=== PATIENT | female | born 1975 | race Two or more races ===

== ENCOUNTER 2024-09-07 17:01 | Inpatient (IN) | payer BC, MEDICAID ==
[~2024-09-07] VITALS: Ht 165.1 cm; Wt 105.0 kg
--- NOTE | 2024-09-07 17:31 | ED.PDOC ---
History of Present Illness HPI Comments 49F presents to the ER w/ prior MHx of HTN, High Lipids, Liver [place], Diverticulosis and the c/c of ABD pain. Pt reports on having a"I think my appendix bursted" x2hrs ago. Pt states on having RLQ pain since last Tuesday of 08/2324 w/ N/ and sweating. Pt reports a current pain type of a 01/18. Denies chills, fever, /V/D, SOB, CP. Denies any other associated symptom's, modifiers, or recent injuries or sick contact at this time. 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 Family History Family History: Reviewed,noncontributory to illness, Unknown Social History Smoker: Non-Smoker Alcohol: Denies ETOH Use Drugs: Denies Drug Use Lives In: Home Constitutional: denies: chills, diaphoresis, fatigue, fever, malaise, sweats, weakness, others EENTM: denies: blurred vision, double vision, ear bleeding, ear discharge, ear drainage, ear pain, ear ringing, eye pain, eye redness, hearing loss, mouth pain, mouth swelling, nasal discharge, nose bleeding, nose congestion, nose pain, photophobia, tearing, throat pain, throat swelling, voice changes, others Respiratory: denies: cough, hemoptysis, orthopnea, SOB at rest, shortness of breath, SOB with excertion, stridor, wheezing, others Cardiovascular: denies: chest pain, dizzy spells, diaphoresis, Dyspnea on exertion, edema, irregular heart beat, left arm pain, lightheadedness, palpita tions, PND, syncope, others Gastrointestinal: reports: abdominal pain, nausea; denies: abdomen distended, blood streaked bowels, constipated, diarrhea, dysphagia, difficulty swallowing, hematemesis, melena, poor appetite, poor fluid intake, rectal bleeding, rectal pain, vomiting, others Genitourinary: denies: abnormal vagina bleeding, burning, dyspareunia, dysuria, flank pain, frequency, hematuria, incontinence, pain, , vagina discharge, urgency, others Neurological: denies: dizziness, fainting, headache, left sided numbness, left sided weakness, numbness, paresthesia, pre-existing deficit, right sided numbness, right sided weakness, seizure, speech problems, tingling, tremors, weakness, others Musculoskeletal: denies: back pain, gout, joint pain, joint swelling, muscle pain, muscle stiffness, neck pain, others Integumetry: denies: bruises, change in color, change in hair/nails, dryness, laceration, lesions, lumps, rash, wounds, others Allergic/Immunocompromised: denies: Difficulty Healing, Frequent Infections, Hives, Itching, others Hematologic/Lymphatic: denies: anemia, blood clots, easy bleeding, easy bruising, swollen glands, others Endocrine: denies: excessive hunger, excessive sweating, excessive thirst, excessive urination, flushing, intolerance to cold, intolerance to heat, unexpla ined weight gain, unexplained weight loss, others Psychiatric: denies: anxiety, bipolar disorder, depression, hopeless, panic disorder, schizophrenia, sleepless, suicidal, others All Other Systems: Reviewed and Negative Physical Exam General Appearance: Moderate Distress HEENT: Normal ENT Inspection, Pharynx Normal, TMs Normal Neck: Full Range of Motion, Non-Tender, Normal, Normal Inspection Respiratory: Chest Non-Tender, Lungs Clear, No Accessory Muscle Use, No Respiratory Distress, Normal Breath Sounds Cardiovascular: No Edema, No JVD, No Murmur, No Gallop, Normal Peripheral Pulses, Regular Rate/Rhythm Breast Exam: Deferred Gastrointestinal: No Organomegaly, No Pulsatile Mass, Normal Bowel Sounds, RLQ, Soft, Tenderness Genitalia: Deferred Pelvic: Deferred Rectal: Deferred Extremities: No calf tenderness, Normal capillary refill, Normal inspection, Normal range of motion, Non-tender, No pedal edema Musculoskeletal : Apperance: Normal Neurologic: Alert, emergency dept tech II-XII nml as Tested, No Motor Deficits, Normal Affect, Normal Mood, No Sensory Deficits Cerebellar Function: Normal Reflexes: Normal Skin: Dry, Normal Color, Warm Lymphatic: No Adenopathy Was a procedure done? Was a procedure done?: No Differential Dx Considerations may include: Appendicitis, ruptured ovarian cyst, UTI, generalized weakness X-Ray, Labs, Meds, VS Vital Signs Date Time Temp Pulse Resp B/P (MAP) Pulse Ox O2 Delivery O2 Flow Rate FiO2 09/07/24 17:15 97.1 120 28 146/81 (102) 97 97.1 Lab Test 09/07/24 17:41 Range/Units White Blood Count 11.5 H 4.4-10.8 10^3/uL Red Blood Count 5.20 4.0-5.20 10^6/uL Hemoglobin 14.5 12.2-16.2 g/dL Hematocrit 43.1 36.0-46.0 % Mean Corpuscular Volume 83.0 80.0-100.0 fL Mean Corpuscular Hemoglobin 28.0 28.0-32.0 pg Mean Corpuscular Hemoglobin Concent 33.7 32.0-36.0 g/dL Red Cell Distribution Width 12.9 11.8-14.3 % Platelet Count 329 140-450 10^3/uL Mean Platelet Volume 8.4 6.9-10.8 fL Neutrophils (%) (Auto) 64.6 37.0-80.0 % Lymphocytes (%) (Auto) 26.4 10.0-50.0 % Monocytes (%) (Auto) 6.9 0.0-12.0 % Eosinophils (%) (Auto) 1.3 0.0-7.0 % Basophils (%) (Auto) 0.8 0.0-2.0 % Neutrophils # (Auto) 7.4 1.6-8.6 10 ^3/uL Lymphocytes # (Auto) 3.0 0.4-5.4 10 ^3/uL Monocytes # (Auto) 0.8 0-1.3 10 ^3/uL Eosinophils # (Auto) 0.1 0-0.8 10 ^3/uL Basophils # (Auto) 0.1 0-0.2 10 ^3/uL Nucleated Red Blood Cells 0.1 % Sodium Level 140 136-145 mmol/L Potassium Level 3.6 3.5-5.1 mmol/L Chloride Level 108 H 98-107 mmol/L Carbon Dioxide Level 19 L 20-31 mmol/L Anion Gap 13 5-15 Blood Urea Nitrogen 12 9-23 mg/dL Creatinine 1.05 H 0.550-1.02 mg/dL Glomerular Filtration Rate Calc 66 >90 mL/min BUN/Creatinine Ratio 11.4 10.0-20.0 Serum Glucose 108 H 74-106 mg/dL Calcium Level 10.7 H 8.7-10.4 mg/dL Total Bilirubin 0.6 0.2-1.0 mg/dL Aspartate Amino Transferase (AST) 21 13-40 U/L Alanine Aminotransferase (ALT) 24 7-40 U/L Alkaline Phosphatase 96 46-116 U/L Total Protein 7.7 5.7-8.2 g/dL Albumin 5.1 H 3.2-4.8 g/dL IMPRESSION: 1. No CT evidence for acute intra-abdominal or intrapelvic process. 2. Mild diffuse gaseous distention of the large bowel without bowel wall thickening. 3. Slightly irregular liver contour concerning for developing cirrhosis. In addition, small hypodense lesion seen in segment IV which is typically related to underlying focal fatty change. These findings should be further evaluated by liver function test and multiphasic abdominal CT scan or MRI without and with IV contrast utilizing a dedicated hepatic protocol on a nonemergent basis. IV Hep-Lock is being established The patient was given normal saline as a bolus The patient was given morphine 4 mg IV push for the pain The patient was given Zofran 4 mg IV push for the nausea Images Reviewed?: Images reviewed and evaluated by me Time of 1ST Reevaluation: 18:00 Reevaluation 1ST: Unchanged Patient Education/Counseling: Diagnosis, Treatment, Prognosis Family Education/Counseling: No Family Present Departure 1 Departure Time of Disposition: 18:44 Impression: Primary Impression: Intractable abdominal pain Additional Impression: Cirrhosis of liver Qualified Codes: K74.60 - Unspecified cirrhosis of liver Disposition: ADMITTED INPATIENT Admit to: Med Surg Condition: Fair Critical Care Note Critical Care Time?: No Stability Stability form required: Yes Unstable for transfer: ED Physician Assesment (Clinical assesment) Heart Score Heart Score: Heart Score Response (Comments) Value History N/A 0 EKG N/A 0 Age N/A 0 Risk Factors N/A 0 Troponin N/A 0 Total 0 I personally scribed for IMAN ORTEGA MD ([email or web address]) on 09/07/24 at 17:31. Electronically submitted by Jason White ([email or web address]). I personally scribed for IMAN ORTEGA MD ([email or web address]) on 09/07/24 at 18:29. Electronically submitted by Michel Castellanos ([facility]). I personally scribed for IMAN ORTEGA MD ([email or web address]) on 09/07/24 at 18:35. Electronically submitted by Jason White ([email or web address]). IMAN ORTEGA MD September 07, 2024 17:31
[2024-09-07 18:15] LABS: Basophils # (auto) 0.1 10 ^3/uL (0-0.2); Basophils % (auto) 0.8 % (0.0-2.0); Eosinophils # (auto) 0.1 10 ^3/uL (0-0.8); Eosinophils % (auto) 1.3 % (0.0-7.0); Hematocrit 43.1 % (36.0-46.0); Hemoglobin 14.5 g/dL (12.2-16.2); Lymphocytes % (auto) 26.4 % (10.0-50.0); Mean Corpuscular Hgb Conc. 33.7 g/dL (32.0-36.0); Monocytes # (auto) 0.8 10 ^3/uL (0-1.3); Monocytes % (auto) 6.9 % (0.0-12.0); Neutrophils # (auto) 7.4 10 ^3/uL (1.6-8.6); Neutrophils % (auto) 64.6 % (37.0-80.0); Nucleated Red Blood Cells % 0.1 %; Platelet Count (auto) 329 10^3/uL (140-450); Red Cell Distribution Width 12.9 % (11.8-14.3); White Blood Cell 11.5 10^3/uL (4.4-10.8)
--- NOTE | 2024-09-07 18:25 | DVH ---
Procedure: CT CT AB PEL WO CON-NO ORAL OR IV 09/07/2024 05:26 PM Indication: Right lower quadrant pain Comparison Study: None Technique: Axial images were obtained and reformatted in coronal and sagittal planes. All CT scans at this medical facility are performed using dose modulation techniques as appropriate to a performed e xam including the following: Automated exposure control was utilized; adjustment of the MA and/or KV according to patient size; and use of iterative reconstruction technique. CT Dose: CTDI volume is 26. 05 mGy. Dose-length product is 1367.6 mGy*cm FINDINGS: Lower Chest: Unremarkable. Hepatobiliary: Slightly irregular liver contour. No intrahepatic or extrahepatic ductal dilatation. S mall focal hypoattenuation in the left lobe, segment IV adjacent to the falciform ligament typically reflect focal fatty change. No calcified gallstone noted. Spleen: Unremarkable. Pancreas: Unremarkable. Adrenal Glands: Unremarkable. tract: The kidneys are normal in size bilaterally without hydronephrosis or nephrolithiasis. The u rinary bladder is unremarkable. GI tract: The stomach is grossly normal in appearance. No evidence of small bowel obstruction. There is mild diffuse gaseous distention of the large bowel without mural thickening. Mild fecal retention in the ascending colon. The appendix is normal. Lymphatics: No mesenteric, retroperitoneal or periportal lymphadenopathy. Vasculature: The abdominal aorta is normal in caliber. Pelvic Organs: Unremarkable Bones/soft tissues: No acute abnormality. Degenerative changes of the lumbar spine noted. Small fat-c ontaining umbilical hernia. Other: None. IMPRESSION: 1. No CT evidence for acute intra-abdominal or intrapelvic process. 2. Mild diffuse gaseous distention of the large bowel without bowel wall thickening. 3. Slightly irregular liver contour concerning for developing cirrhosis. In addition, small hypodens e lesion seen in segment IV which is typically related to underlying focal fatty change. These findi ngs should be further evaluated by liver function test and multiphasic abdominal CT scan or MRI witho ut and with IV contrast utilizing a dedicated hepatic protocol on a nonemergent basis.
[2024-09-07 18:27] LABS: Alanine Aminotransferase 24 U/L (7-40); Alkaline Phosphatase 96 U/L (46-116); Anion Gap 13 (5-15); Aspartate Aminotransferase 21 U/L (13-40); BUN/Creatinine Ratio 11.4 (10.0-20.0); Bilirubin, Total 0.6 mg/dL (0.2-1.0); Blood Urea Nitrogen 12 mg/dL (9-23); Potassium 3.6 mmol/L (3.5-5.1); Sodium 140 mmol/L (136-145); Total Protein 7.7 g/dL (5.7-8.2)
[2024-09-07 18:32] LABS: Albumin 5.1 g/dL (3.2-4.8); Calcium 10.7 mg/dL (8.7-10.4); Carbon Dioxide 19 mmol/L (20-31); Chloride 108 mmol/L (98-107); Glucose 108 mg/dL (74-106)
[2024-09-07 19:48] LABS: Urine Bacteria FEW /hpf (None Seen); Urine Blood 1+ /uL (Negative); Urine Clarity Turbid (Clear); Urine Color Yellow (Yellow); Urine Hyaline Cast FEW /lpf (0 - 2); Urine Mucus FEW (None Seen); Urine Protein, UAD 1+ (Negative); Urine Specific Gravity 1.027 (1.001-1.035); Urine Squamous Epithelial Cell MOD /hpf (<5); Urine Urobilinogen Normal (Negative); Urine WBC 7 /HPF (0-5); Urine pH 5.5 (5.0-9.0)
[2024-09-07] MEDS ORDERED: SODIUM CHLORIDE 0.9% 1,000 ML IV SCH (21:15)
[2024-09-07] MEDS ORDERED: ACETAMINOPHEN 325 MG TAB PO PRN (21:15)
[2024-09-07] MEDS ORDERED: CIPROFLOXACIN 400MG/200ML 200 ML IV SCH (22:00)
[2024-09-07] MEDS: SODIUM CHLORIDE 0.9% 1,000 ML IV ONE (22:15)
[2024-09-07 22:44] LABS: Erythrocyte Sedimentation Rate 13 mm/hr (0-20)
[2024-09-07 22:50] LABS: Amphetamine Screen, Urine Neg (NEGATIVE); Barbiturate Scree,Urine Neg (NEGATIVE); Benzodiazephine Screen, Urine Neg (NEGATIVE); Cannabinoid Screen, Urine Neg (NEGATIVE); Cocaine Screen, Urine Neg (NEGATIVE); Opiate Scree,Urine Neg (NEGATIVE); Phencyclidine Screen, Urine Neg (NEGATIVE)
[2024-09-07] MEDS: SODIUM CHLORIDE 0.9% 1,000 ML IVB ONE (23:17)
[2024-09-07] MEDS: MORPHINE SULFATE 4 MG/ML SYR/VIAL IV ONE (23:18)
[2024-09-07] MEDS: ONDANSETRON HCL 4 MG/2 ML VIAL IV ONE (23:18)
[2024-09-08] VITALS (7 sets, daily range): BP systolic 122–146; BP diastolic 58–88; PULSE 80–102; RESP 15–21; TEMP 97.9–99.2; O2SAT 92–96
[2024-09-08] MEDS ORDERED: PRAV20TA3 PO (02:31)
[2024-09-08] MEDS ORDERED: QUET200T4 PO (02:31)
[2024-09-08] MEDS ORDERED: MELA3TAB27 PO (02:31)
[2024-09-08] MEDS ORDERED: DILT30TA PO (02:31)
[2024-09-08] MEDS ORDERED: VENL150C3 PO (02:31)
[2024-09-08] MEDS: PANTOPRAZOLE 40 MG/10 ML VIAL INJ IV SCH (02:51)
--- NOTE | 2024-09-08 04:59 | DVHHP2 ---
History of Present Illness History of Present Illness 49 y/o female with PMHx of hypertension, hyperlipidemia, hepatic steatosis and diverticulosis who presents with acute right lower quadrant abdominal pain. She reports onset since last Tuesday accompanied by nausea and sweating. Pain is described as moderate and persistent for several days. Patient states she experienced diarrhea for the past two weeks, described as explosive and foul- smelling, with recent episodes turning black. She also reports recent use of a herbal supplement and Pepto-Bismol. Denies fever, vomiting, shortness of breath, or chest pain. No known sick contacts or recent travel. Past Surgical History: Denies any surgeries Social History: Non-smoker Denies alcohol use Denies illicit drug use Review of Systems Constitutional: No: Fever, Chills, Sweats, Weakness, Malaise, Other Eyes: No: Pain, Vision change, Conjunctivae inflammation, Eyelid inflammation, Other, Redness ENT: No: Ear pain, Ear discharge, Nose pain, Nose discharge, Nose congestion, Mouth pain, Mouth swelling, Throat pain, Throat swelling, Other Respiratory: No: Cough, Dry, Shortness of breath, SOB with excertion, Wheezing, Hemoptysis, Pleuritic Pain, Sputum, Wheezing, Other Cardiovascular: No: Chest Pain, Palpitations, Orthopnea, Paroxysmal Noc. Dyspnea, Edema, Lt Headedness, Other Gastrointestinal: Abdominal Pain, Diarrhea; No: Nausea, Vomiting, Constipation, Melena, Hematochezia, Other Genitourinary: No Dysuria, No Frequency, No Incontinence, No Hematuria, No Retention, No Other Musculoskeletal: No: other, neck pain, shoulder pain, arm pain, back pain, hand pain, leg pain, foot pain Skin: No: Rash, Lesions, Jaundice, Bruising, Other Neurological: No: Weakness, Numbness, Incoordination, Change in speech, Confusion, Seizures, Other Allergies: Coded Allergies: NO KNOWN ALLERGIES (Unverified , 09/07/24) Medications Current Medications Medications Dose Ordered Sig/Tomas Route Start Time Stop Time Status Last Admin Dose Admin Acetaminophen 650 mg Q6HP PRN PO 09/07/24 21:15 Enoxaparin Sodium 40 mg DAILY SC 09/08/24 10:00 Metronidazole 100 ml @ 100 mls/hr Q8HR IV 09/07/24 22:00 Pantoprazole Sodium 40 mg BID IV 09/07/24 23:45 09/08/24 02:51 40 MG Ciprofloxacin 200 ml @ 200 mls/hr Q12HR IV 09/08/24 10:00 Exam Vital Signs Vital Signs Date Time Temp Pulse Resp B/P (MAP) Pulse Ox O2 Delivery O2 Flow Rate FiO2 09/08/24 01:30 98.1 91 16 122/66 (84) 96 98.1 09/08/24 01:30 Room Air* 0 21 Exam General: Appears moderately distressed HEENT: Normal Cardiac: Normal S1S2 Lungs: Clear to auscultation Abdomen: Tenderness to palpation RLQ, no rebound or guarding Neuro: Alert and oriented x3 Skin: No rashes or lesions noted Labs/Xrays Labs Test 09/07/24 17:41 09/07/24 17:15 Range/Units White Blood Count 11.5 H 4.4-10.8 10^3/uL Red Blood Count 5.20 4.0-5.20 10^6/uL Hemoglobin 14.5 12.2-16.2 g/dL Hematocrit 43.1 36.0-46.0 % Mean Corpuscular Volume 83.0 80.0-100.0 fL Mean Corpuscular Hemoglobin 28.0 28.0-32.0 pg Mean Corpuscular Hemoglobin Concent 33.7 32.0-36.0 g/dL Red Cell Distribution Width 12.9 11.8-14.3 % Platelet Count 329 140-450 10^3/uL Mean Platelet Volume 8.4 6.9-10.8 fL Neutrophils (%) (Auto) 64.6 37.0-80.0 % Lymphocytes (%) (Auto) 26.4 10.0-50.0 % Monocytes (%) (Auto) 6.9 0.0-12.0 % Eosinophils (%) (Auto) 1.3 0.0-7.0 % Basophils (%) (Auto) 0.8 0.0-2.0 % Neutrophils # (Auto) 7.4 1.6-8.6 10 ^3/uL Lymphocytes # (Auto) 3.0 0.4-5.4 10 ^3/uL Monocytes # (Auto) 0.8 0-1.3 10 ^3/uL Eosinophils # (Auto) 0.1 0-0.8 10 ^3/uL Basophils # (Auto) 0.1 0-0.2 10 ^3/uL Nucleated Red Blood Cells 0.1 % Erythrocyte Sedimentation Rate 13 0-20 mm/hr Sodium Level 140 136-145 mmol/L Potassium Level 3.6 3.5-5.1 mmol/L Chloride Level 108 H 98-107 mmol/L Carbon Dioxide Level 19 L 20-31 mmol/L Anion Gap 13 5-15 Blood Urea Nitrogen 12 9-23 mg/dL Creatinine 1.05 H 0.550-1.02 mg/dL Glomerular Filtration Rate Calc 66 >90 mL/min BUN/Creatinine Ratio 11.4 10.0-20.0 Serum Glucose 108 H 74-106 mg/dL Calcium Level 10.7 H 8.7-10.4 mg/dL Total Bilirubin 0.6 0.2-1.0 mg/dL Aspartate Amino Transferase (AST) 21 13-40 U/L Alanine Aminotransferase (ALT) 24 7-40 U/L Alkaline Phosphatase 96 46-116 U/L C-Reactive Protein High Sensitivity 0.33 <1.0 mg/dL Total Protein 7.7 5.7-8.2 g/dL Albumin 5.1 H 3.2-4.8 g/dL Urine Color Yellow Yellow Urine Clarity Turbid H Clear Urine pH 5.5 5.0-9.0 Urine Specific [place] 1.027 1.001-1.035 Urine Protein 1+ H Negative Urine Ketones 1+ H Negative Urine Blood 1+ H Negative /uL Urine Nitrite Negative Negative Urine Bilirubin Negative Negative Urine Urobilinogen Normal Negative mg/dL Urine Leukocyte Esterase Trace Negative /uL Urine RBC 7 0 - 4 /hpf Urine Microscopic WBC 7 H 0-5 /HPF Urine Squamous Epithelial Cells Mod <5 /hpf Urine Bacteria Few H None Seen /hpf Urine Hyaline Casts Few 0 - 2 /lpf Urine Mucus Few None Seen Urine Glucose Normal Normal mg/dL Urine Opiates Screen Neg NEGATIVE Urine Fentanyl Screen Neg NEGATIVE Urine Barbiturates Screen Neg NEGATIVE Urine Phencyclidine Screen Neg NEGATIVE Urine Amphetamines Screen Neg NEGATIVE Urine Benzodiazepines Screen Neg NEGATIVE Urine Cocaine Screen Neg NEGATIVE Urine Cannabinoids Screen Neg NEGATIVE Assessment/Plan Assessment/Plan #Acute intractable abdominal pain #Possible infectious colitis #UTI? #Sepsis? #Hypertensive crisis at admission, resolved #GI bleeding? #Hepatic steatosis Admit Medsurg NPO IV fluids Metronidazole + Ciprofloxacin Tylenol for pain stool studies Enoxaparin 40 mg SC Protonix BID Case discussed with Dr Wells Full code Plan discussed with: Patient, Other My Orders Orders - DORIS PINEDA Procedure Category Date Status Time Admit ADMIT 09/07/24 Transmitted 21:06 Code Status CODE 09/07/24 Transmitted 21:06 Vital Signs ASHLEY 09/07/24 In Process 21:06 Review Orders With [facility] 09/07/24 In Process Adm. 21:06 Acetaminophen Tablet PHA 09/07/24 In Process (Tylenol Tablet) 21:15 Notify Md Of Changes ASHLEY 09/07/24 In Process From Base 21:06 Advance Directive ASHLEY 09/07/24 In Process 21:06 Patient Condition ORDERS 09/07/24 Transmitted 21:06 Allergies ASHLEY 09/07/24 In Process 21:06 Enoxaparin Sodium PHA 09/08/24 In Process (Lovenox) 10:00 Metronidazole PHA 09/07/24 In Process 500mg/100ml (Flagyl 22:00 Stool Occult Blood LAB 09/07/24 Logged 21:06 Stool Wbc LAB 09/07/24 Logged 21:06 Stool Bacterial GILMAR 09/07/24 Logged Culture 21:06 Clostridium Difficile GILMAR 09/07/24 Uncollected Toxin 22:01 Npo Except Ice Chips ASHLEY 09/07/24 In Process 23:43 Npo (Nothing By DIET 09/07/24 Transmitted Mouth) Diet Breakfast Pantoprazole PHA 09/07/24 In Process (Protonix) 23:45 Urine Bacterial GILMAR 09/08/24 Uncollected Culture 04:53 Complete Blood Count LAB 09/08/24 Verified 04:53 Comprehensive LAB 09/08/24 Verified Metabolic Panel 04:53 Thyroid Stimulating LAB 09/08/24 Verified Hormone 04:53 Hemoglobin A1c LAB 09/08/24 Verified 04:53 Date of Service: September 07, 2024 Billing Provider: RHONDA WELLS MD Common Visit Codes: [id number] INP/OBS CARE (HIGH) Secondary Visit Codes: [id number] CARE PLAN 30 MINUTES DORIS PINEDA RESIDENT September 08, 2024 04:59
[2024-09-08] MEDS: metroNIDAZOLE 500MG/100ML 100 ML IV SCH (05:01)
[2024-09-08 06:49] LABS: Basophils # (auto) 0 10 ^3/uL (0-0.2); Basophils % (auto) 0.4 % (0.0-2.0); Eosinophils # (auto) 0.1 10 ^3/uL (0-0.8); Eosinophils % (auto) 1.5 % (0.0-7.0); Hemoglobin 13.2 g/dL (12.2-16.2); Lymphocytes # (auto) 2.3 10 ^3/uL (0.4-5.4); Lymphocytes % (auto) 26.2 % (10.0-50.0); Mean Corpuscular Hgb Conc. 34.7 g/dL (32.0-36.0); Mean Corpuscular Volume 83.6 fL (80.0-100.0); Monocytes # (auto) 0.7 10 ^3/uL (0-1.3); Monocytes % (auto) 8.1 % (0.0-12.0); Neutrophils # (auto) 5.6 10 ^3/uL (1.6-8.6); Neutrophils % (auto) 63.8 % (37.0-80.0); Platelet Count (auto) 242 10^3/uL (140-450); Red Blood Cells 4.55 10^6/uL (4.0-5.20); Red Cell Distribution Width 12.8 % (11.8-14.3); White Blood Cell 8.8 10^3/uL (4.4-10.8)
[2024-09-08 07:01] LABS: Alanine Aminotransferase 18 U/L (7-40); Albumin 4.2 g/dL (3.2-4.8); Alkaline Phosphatase 79 U/L (46-116); Anion Gap 9 (5-15); Aspartate Aminotransferase 17 U/L (13-40); BUN/Creatinine Ratio 14.3 (10.0-20.0); Bilirubin, Total 0.8 mg/dL (0.2-1.0); Blood Urea Nitrogen 13 mg/dL (9-23); Calcium 9.8 mg/dL (8.7-10.4); Carbon Dioxide 22 mmol/L (20-31); Glucose 91 mg/dL (74-106); Sodium 142 mmol/L (136-145); Total Protein 6.4 g/dL (5.7-8.2)
[2024-09-08 07:04] LABS: Chloride 111 mmol/L (98-107); Potassium 3.4 mmol/L (3.5-5.1)
[2024-09-08] MEDS: CIPROFLOXACIN 400MG/200ML 200 ML IV SCH (09:52)
[2024-09-08] MEDS: ENOXAPARIN SOD 40 MG/0.4 ML SYRINGE SC SCH (09:55)
--- NOTE | 2024-09-08 12:35 | DVH ---
CT HEAD WITHOUT CONTRAST INDICATION: confusion EXAM DATE: 09/08/2024 11:07 AM COMPARISON: None RADIATION DOSE: CTDIvol: 53.59 mGy, DLP: 859.09 mGy*cm PROCEDURE: CT scans of the head were obtained from the vertex to the skull base. Sagittal and coronal reconstructions were provided. All CT scans at this medical facility are performed using dose modulation techniques as appropriate t o a performed exam including the following: Automated exposure control was utilized; adjustment of th e MA and/or KV according to patient size; and use of iterative reconstruction technique. FINDINGS: There is sulcal and ventricular prominence. The brainshows normal morphology and simon-whi te matter differentiation, without intracranial hemorrhage, extra-axial fluid collection, mass effect or acute large vessel infarct. The ventricles are normal in size. The basal cisterns are patent. The skull and visible facial bones are intact. The paranasal sinuses, mastoid air cells and middle ear c avities are well-aerated. The soft tissues of the scalp are unremarkable. IMPRESSION: No acute intracranial abnormality.
[2024-09-08] MEDS: GADOTERATE MEG 10 MMOL/20ml INJ (0.5MMOL/ml) IV ONE (13:43)
--- NOTE | 2024-09-08 13:57 | DVHPNRES ---
Progress Note Date Seen: September 08, 2024 Resident Creating Document: NEGAR REYES RESIDENT Medical Necessity Reason Pt with a Central, PICC or Fol: No Subjective Review of Systems HPI 49 y/o female with PMHx of hypertension, hyperlipidemia, hepatic steatosis and diverticulosis who presents with acute right lower quadrant abdominal pain which she experienced while going back from work. Patient reports that she has been having episodes of diarrhea associated with the abdominal pain since the last 2 weeks week, loose stools, no associated blood, explosive and foul-smelling with recent episodes turning black patient reported taking Pepto-Bismol and herbal supplement. On asking further history she reports that she has been having on and off diarrhea for the last 6-7 months. Pain is described as moderate and persistent for several days. She also reports of having episode of sweating and feeling hot. Patient is on implanted contraceptive. Yesterday with the patient was going back from work seizure suddenly felt severe pain in the right lower quadrant and reported she felt "has if my appendix exploded". Patient reports associated weight loss apparently she weighed 250 lb a month ago and now she weighs 231 lb now. Denies fever, shortness of breath, or chest pain. No known sick contacts or recent travel. Past medical history: As per HPI No surgical history Social history: Patient denies smoking, alcohol use or any other drug use Home medications: Diltiazem 120 mg daily, pravastatin 40 mg daily, venlafaxine 150 mg, quetiapine 400 mg Review of systems Patient seen and examined at the bedside Reports of abdominal pain which has improved Episode of diarrhea yesterday but no loose stools today Patient was given ciprofloxacin following which she developed hives on her chest and it was stopped Objective vital signs Vital Sign Date Time Temp Pulse Resp B/P (MAP) Pulse Ox O2 Delivery O2 Flow Rate FiO2 09/08/24 09:00 99.2 88 20 131/79 (96) 92 99.2 09/08/24 01:30 Room Air* 0 21 Total Intake and Output 09/07/24 09/07/24 09/08/24 15:00 23:00 07:00 Intake Total 0 ml Balance 0 ml medications Current Medications Medications Dose Ordered Sig/Tomas Route Start Time Stop Time Status Last Admin Dose Admin Acetaminophen 650 mg Q6HP PRN PO 09/07/24 21:15 Enoxaparin Sodium 40 mg DAILY SC 09/08/24 10:00 Metronidazole 100 ml @ 100 mls/hr Q8HR IV 09/07/24 22:00 09/08/24 06:41 100 MLS/HR Pantoprazole Sodium 40 mg BID IV 09/07/24 23:45 09/08/24 09:52 40 MG Ciprofloxacin 200 ml @ 200 mls/hr Q12HR IV 09/08/24 10:00 09/08/24 09:52 200 MLS/HR Examination Gen - no pallor, no icterus, no cyanosis, no clubbing, no LAD, no edema . Morbidly obese Skin - Patients skin is warm and dry. HEENT - normocephalic, atraumatic, moist mucous membranes. Neck - full ROM, no LAD, no JVD Pulmonary - B/L equal breath sounds, no crackles, no wheezing, no stridor. cardiovascular - regular S1,S2 heard, no added sounds, no murmurs heard. peripheral pulses normal radial 2+, pedal 2+. capillary refill normal <2 secs. GI - soft abdomen mild tenderness in the right and the left lower quadrant, no tenderness of the McBurney's point. no hepatosplenomegaly. Bowel sounds normoactive Neurological - Patient is A/O X 3 . Bilateral upper extremity strength 5/5, bilateral lower extremity strength 5/5, no facial droop, normal speech, no tremor, no focal deficits laboratory and microbiology Laboratory Tests 09/08/24 05:51 Test 09/08/24 05:51 Range/Units Serum Glucose 91 74-106 mg/dL Labs and/or images reviewed: Labs reviewed by me, Image(s) reviewed by me Problem List/Assessment/Plan Problem List/Assessment/Plan Acute intractable abdominal pain Intermittent diarrhea ? Acute infectious colitis Possible hepatic steatosis R/O neuroendocrine tumor - CT abdomen pelvis showed mild diffuse gaseous distention of the large bowel without bowel wall thickening, slightly irregular liver contour concerning for developing cirrhosis Small hypodense lesion in segment 4 of the liver seen - MRI abdomen with and without contrast pending - stool tests pending - Protonix and Carafate - IV ceftriaxone and metronidazole - IV fluids H/O tachyarrhythmia Hypertensive heart disease Dyslipidemia - continued on diltiazem 120 mg daily - atorvastatin 40 mg daily Possible urinary tract infection - urine cultures pending - on ceftriaxone IV Major depressive disorder History of intrusive thoughts; delusions and paranoia - continued on venlafaxine and quetiapine - declined tele psych evaluation History of episodes of dysarthria/confusion - ordered head CT without contrast DVT prophylaxis: Enoxaparin PUD prophylaxis: Protonix Goals of care discussed with the patient for 20 minutes. Full code Plan discussed with Dr. Quigley Plan discussed with: Patient, Other (RN) My Orders My Orders Orders - NEGAR REYES RESIDENT Procedure Category Date Status Time * Gi Dvh Product Safety Expert CONS 09/08/24 Transmitted 11:58 Mri Abdomen W And Wo MRI 09/08/24 Logged 12:12 Test, Urine LAB 09/08/24 Logged 12:12 Addendum Addendum Addendum I was physically present for the ordoñez portions of the service provided to patient by THE RESIDENT. I have reviewed the documentation, discussed the case with resident and agree with the resident's documentation except as noted. Also the patient's clinical case was discussed with the patient's nurse. This medical document was created using an electronic medical record system with computerized dictation system. Although this document has been carefully reviewed, there might still be some phonetic and typographical errors. These areas are purely typographical due to imperfections of the software programs, and do not reflect any compromise in the patient's medical care. Late signature. Date of Service: September 08, 2024 Billing Provider: EDGAR QUIGLEY MD Common Visit Codes: [id number] INP/OBS CARE(HIGH) Secondary Visit Codes: 05559-[id number] CARE PLAN 30 MINUTES (20 minutes) NEGAR REYES RESIDENT September 08, 2024 13:57 EDGAR QUIGLEY MD Sep 09, 2024 13:05
[2024-09-08] MEDS: POTASSIUM CHL 20 Meq TABLET PO ONE (15:24)
[2024-09-08] MEDS: dilTIAZem 120MG ER CAP PO ONE (15:26)
--- NOTE | 2024-09-08 20:04 | DVH ---
MRI Abdomen, Pre and Post Contrast Exam Date: 09/08/2024 01:48 PM Comparison: CT abdomen/ pelvis 09/07/2024 History: Liver segment IV, s/s concerning for NET Technique: Multiplanar and multisequence MRI of the abdomen per institutional protocol. Exam was performed with and without intravenous contrast with multiphasic contrast in arterial, venous, and delayed phases. Comments: There is moderate motion artifact on multiple sequences. Per photographic reproduction technician the patient had pain holding their breath during the exam. Findings: Liver: The liver is normal in size. Hepatic parenchyma is normal. There is a 5 mm cyst in the right inferior hepatic lobe (series 4, image 25). There is mild focal fatty infiltration along the falcifor m ligament with signal dropout on out of phase imaging (series 6, image 19). Spleen: Unremarkable. Pancreas: The pancreas is normal in appearance without focal lesions. Gallbladder and ducts: Gallbladder is normal in appearance. No evidence of biliary ductal dilatation . Adrenal glands: Unremarkable. Kidneys: Normal enhancement without suspicious lesions or hydronephrosis. Visualized bowel: Grossly unremarkable. Vasculature: Unremarkable. Lymphadenopathy: No evidence for lymphadenopathy. Ascites: Absent. Musculoskeletal: Bone marrow signal is normal. Mild thoracolumbar dextrocurvature. IMPRESSION: There is moderate motion artifact. Within this limitation: 1. No evidence of acute abdominal abnormalities. 2. Liver parenchyma is normal. The previously questioned abnormality is consistent with mild focal fa t deposition.
[2024-09-08] MEDS: SUCRALFATE 1 GM/10 ML ORAL SUSP PO SCH (22:00)
[2024-09-08] MEDS: ATORVASTATIN 20 MG TAB PO SCH (22:00)
[2024-09-08] MEDS: QUEtiapine FUMARATE 100 MG TAB PO SCH (23:21)
[2024-09-09 05:00] VITALS: BP 125/82; PULSE 95; RESP 18; TEMP 97.8; O2SAT 97
[2024-09-09 07:16] LABS: Basophils # (auto) 0 10 ^3/uL (0-0.2); Basophils % (auto) 0.6 % (0.0-2.0); Eosinophils # (auto) 0.1 10 ^3/uL (0-0.8); Eosinophils % (auto) 0.9 % (0.0-7.0); Hematocrit 38.4 % (36.0-46.0); Hemoglobin 13.1 g/dL (12.2-16.2); Lymphocytes # (auto) 1.4 10 ^3/uL (0.4-5.4); Mean Corpuscular Hemoglobin 28.9 pg (28.0-32.0); Mean Corpuscular Hgb Conc. 34.1 g/dL (32.0-36.0); Mean Corpuscular Volume 84.7 fL (80.0-100.0); Monocytes # (auto) 0.6 10 ^3/uL (0-1.3); Monocytes % (auto) 7.8 % (0.0-12.0); Neutrophils # (auto) 5.7 10 ^3/uL (1.6-8.6); Neutrophils % (auto) 72.7 % (37.0-80.0); Nucleated Red Blood Cells % 0.1 %; Platelet Count (auto) 230 10^3/uL (140-450); Red Blood Cells 4.54 10^6/uL (4.0-5.20); Red Cell Distribution Width 12.9 % (11.8-14.3); White Blood Cell 7.8 10^3/uL (4.4-10.8)
[2024-09-09 07:25] LABS: Anion Gap 11 (5-15); Potassium 3.5 mmol/L (3.5-5.1); Sodium 143 mmol/L (136-145)
[2024-09-09 07:27] LABS: Calcium 9.8 mg/dL (8.7-10.4)
[2024-09-09 07:31] LABS: BUN/Creatinine Ratio 12.2 (10.0-20.0); Blood Urea Nitrogen 10 mg/dL (9-23); Glucose 96 mg/dL (74-106)
[2024-09-09 07:38] LABS: Carbon Dioxide 19 mmol/L (20-31); Chloride 113 mmol/L (98-107)
[2024-09-09 08:51] VITALS: BP 137/90; PULSE 135; RESP 20; TEMP 98.5; O2SAT 98
[2024-09-09] MEDS: cefTRIAXone 1GM/50ML D5W 50 ML IV SCH (09:00)
--- NOTE | 2024-09-09 09:30 | DVHINCON2 ---
Date of service: Sep 09, 2024 Referring Physician Bhargav Reason for Consultation Abdominal pain Diarrhea History of Present Illness Patient is a 49-year-old female with a past medical history significant for depression, hypertension, hyperlipidemia, diverticulosis, admitted with abdominal pain, diarrhea. Patient also complains of diffuse sweating. GI consultation was obtained for evaluation. Patient noted to have fatty liver on imaging. Questionably developing cirrhosis as well. She denies any prior history of liver disease. She denies any chest pain or shortness of breath. Patient noted to have mild leukocytosis has been placed on antibiotics. She denies any nausea or vomiting. Patient denies any GI bleeding although was noted to have dark stool after taking Pepto-Bismol. She has been having intermittent loose stools for more than six months. Imaging tests also show gaseous distention of the stomach. Patient is on antibiotics, stool tests have been ordered as has been an MRI of the abdomen. The patient denies any antibiotic use history recently, ill contacts or travel history. Patient is not the best historian appears agitated at my questions. Past Medical History As above Past Surgical History Denies prior surgical history Family History: Cardiovascular disease G8 MOTHER Family History No family history of GI diseases or malignancies Social History No tobacco alcohol or recreational drug use Allergies: Coded Allergies: Ciprofloxacin (Unverified Adverse Reaction, Unknown, 09/09/24) Patient developed rash after administration. Home Meds Reported Medications Quetiapine Fumerate (Seroquel Xr) 200 Mg Tab, 200 MG PO DAILY for 30 Days, MG 09/08/24 Melatonin ( MELATONIN) 3 Mg Tab, 10 MG PO QHSP, TAB 09/08/24 Pravastatin Sodium (PRAVACHOL TABLET) 20 Mg Tb, 40 MG PO DAILY, #30 TAB 5 Refills 09/08/24 Diltiazem Hcl (Diltiazem Hcl) 30 Mg Tab, 30 MG PO DAILY, TAB 09/08/24 Venlafaxine Hydrochloride (Effexor Xr) 150 Mg Cap, 1 CAP PO DAILY, #30 CAP 1 Refill 09/08/24 Current Medications Current Medications Medications (Trade) Dose Ordered Sig/Tomas Route PRN Reason Start Time Stop Time Status Last Admin Enoxaparin Sodium (Lovenox) 40 mg DAILY SC 09/08/24 10:00 Ciprofloxacin 200 ml @ 200 mls/hr Q12HR IV 09/08/24 10:00 09/08/24 13:57 DC 09/08/24 09:52 Pantoprazole Sodium (Protonix) 40 mg DAILY IV 09/09/24 10:00 Ceftriaxone Sodium 50 ml @ 100 mls/hr DAILY@09 IV 09/09/24 09:00 Sucralfate (Carafate Susp) 1 gm BID@0600,2200 PO 09/08/24 22:00 09/09/24 05:31 Quetiapine Fumarate (SEROquel TABLET) 400 mg HS PO 09/08/24 22:00 09/08/24 23:21 Diltiazem HCl (Cardizem ER Capsule) 120 mg DAILY PO 09/09/24 10:00 Venlafaxine HCl (Effexor Xr) 150 mg DAILY PO 09/09/24 10:00 Atorvastatin Calcium (Lipitor) 40 mg HS PO 09/08/24 22:00 Review of Systems Review of systems negative other than HPI Vital Signs Vital Signs Date Time Temp Pulse Resp B/P (MAP) Pulse Ox O2 Delivery O2 Flow Rate FiO2 09/09/24 08:51 98.5 135 20 137/90 (106) 98 98.5 09/08/24 20:00 Room Air* 0 21 Physical Exam General: Alert and oriented female lying in bed no distress HEENT: NC/AT EOMI PERRLA O/P clear Heart: Regular rate and rhythm Abdomen: Soft nontender nondistended normoactive bowel sounds Extremity: No clubbing cyanosis edema Neuro: Moves all four extremities no asterixis Labs/Diagnostic Data Labs Test 09/09/24 06:32 09/08/24 12:42 09/08/24 05:51 09/07/24 17:41 Range/Units White Blood Count 7.8 4.4-10.8 10^3/uL Red Blood Count 4.54 4.0-5.20 10^6/uL Hemoglobin 13.1 12.2-16.2 g/dL Hematocrit 38.4 36.0-46.0 % Mean Corpuscular Volume 84.7 80.0-100.0 fL Mean Corpuscular Hemoglobin 28.9 28.0-32.0 pg Mean Corpuscular Hemoglobin Concent 34.1 32.0-36.0 g/dL Red Cell Distribution Width 12.9 11.8-14.3 % Platelet Count 230 140-450 10^3/uL Mean Platelet Volume 8.5 6.9-10.8 fL Neutrophils (%) (Auto) 72.7 37.0-80.0 % Lymphocytes (%) (Auto) 18.0 10.0-50.0 % Monocytes (%) (Auto) 7.8 0.0-12.0 % Eosinophils (%) (Auto) 0.9 0.0-7.0 % Basophils (%) (Auto) 0.6 0.0-2.0 % Neutrophils # (Auto) 5.7 1.6-8.6 10 ^3/uL Lymphocytes # (Auto) 1.4 0.4-5.4 10 ^3/uL Monocytes # (Auto) 0.6 0-1.3 10 ^3/uL Eosinophils # (Auto) 0.1 0-0.8 10 ^3/uL Basophils # (Auto) 0 0-0.2 10 ^3/uL Nucleated Red Blood Cells 0.1 % Sodium Level 143 136-145 mmol/L Potassium Level 3.5 3.5-5.1 mmol/L Chloride Level 113 H 98-107 mmol/L Carbon Dioxide Level 19 L 20-31 mmol/L Anion Gap 11 5-15 Blood Urea Nitrogen 10 9-23 mg/dL Creatinine 0.82 0.550-1.02 mg/dL Glomerular Filtration Rate Calc 89 >90 mL/min BUN/Creatinine Ratio 12.2 10.0-20.0 Serum Glucose 96 74-106 mg/dL Calcium Level 9.8 8.7-10.4 mg/dL Hemoglobin A1c 5.4 <5.7 % A1C Total Bilirubin 0.8 0.2-1.0 mg/dL Aspartate Amino Transferase (AST) 17 13-40 U/L Alanine Aminotransferase (ALT) 18 7-40 U/L Alkaline Phosphatase 79 46-116 U/L Total Protein 6.4 5.7-8.2 g/dL Albumin 4.2 3.2-4.8 g/dL Thyroid Stimulating Hormone (TSH) 3.45 0.55-4.78 uIU/mL Erythrocyte Sedimentation Rate 13 0-20 mm/hr C-Reactive Protein High Sensitivity 0.33 <1.0 mg/dL Test 09/07/24 17:15 Range/Units Urine Color Yellow Yellow Urine Clarity Turbid H Clear Urine pH 5.5 5.0-9.0 Urine Specific Martin 1.027 1.001-1.035 Urine Protein 1+ H Negative Urine Ketones 1+ H Negative Urine Blood 1+ H Negative /uL Urine Nitrite Negative Negative Urine Bilirubin Negative Negative Urine Urobilinogen Normal Negative mg/dL Urine Leukocyte Esterase Trace Negative /uL Urine RBC 7 0 - 4 /hpf Urine Microscopic WBC 7 H 0-5 /HPF Urine Squamous Epithelial Cells Mod <5 /hpf Urine Bacteria Few H None Seen /hpf Urine Hyaline Casts Few 0 - 2 /lpf Urine Mucus Few None Seen Urine Glucose Normal Normal mg/dL Urine Opiates Screen Neg NEGATIVE Urine Fentanyl Screen Neg NEGATIVE Urine Barbiturates Screen Neg NEGATIVE Urine Phencyclidine Screen Neg NEGATIVE Urine Amphetamines Screen Neg NEGATIVE Urine Benzodiazepines Screen Neg NEGATIVE Urine Cocaine Screen Neg NEGATIVE Urine Cannabinoids Screen Neg NEGATIVE Procedure: CT CT AB PEL WO CON-NO ORAL OR IV 09/07/2024 05:26 PM Indication: Right lower quadrant pain Comparison Study: None Technique: Axial images were obtained and reformatted in coronal and sagittal planes. All CT scans at this medical facility are performed using dose modulation techniques as appropriate to a performed exam including the following: Automated exposure control was utilized; adjustment of the MA and/or KV according to patient size; and use of iterative reconstruction technique. CT Dose: CTDI volume is 26.05 mGy. Dose-length product is 1367.6 mGy*cm FINDINGS: Lower Chest: Unremarkable. Hepatobiliary: Slightly irregular liver contour. No intrahepatic or extrahepatic ductal dilatation. Small focal hypoattenuation in the left lobe, segment IV a djacent to the falciform ligament typically reflect focal fatty change. No calcified gallstone noted. Spleen: Unremarkable. Pancreas: Unremarkable. Adrenal Glands: Unremarkable. tract: The kidneys are normal in size bilaterally without hydronephrosis or nephrolithiasis. The urinary bladder is unremarkable. GI tract: The stomach is grossly normal in appearance. No evidence of small bowel obstruction. There is mild diffuse gaseous distention of the large bowel without mural thickening. Mild fecal retention in the ascending colon. The appendix is normal. Lymphatics: No mesenteric, retroperitoneal or periportal lymphadenopathy. Vasculature: The abdominal aorta is normal in caliber. Pelvic Organs: Unremarkable Bones/soft tissues: No acute abnormality. Degenerative changes of the lumbar spine noted. Small fat-containing umbilical hernia. Other: None. IMPRESSION: 1. No CT evidence for acute intra-abdominal or intrapelvic process. 2. Mild diffuse gaseous distention of the large bowel without bowel wall thickening. 3. Slightly irregular liver contour concerning for developing cirrhosis. In addition, small hypodense lesion seen in segment IV which is typically related to underlying focal fatty change. These findings should be further evaluated by liver function test and multiphasic abdominal CT scan or MRI without and with IV contrast utilizing a dedicated hepatic protocol on a nonemergent basis. Assessment 1. Abdominal pain 2. Diarrhea 3. Diaphoresis 4. History of diverticulosis 5. Hepatic steatosis Follow up with stool tests pending, MRI ordered results pending Plan/Recommendation 1. Follow up with stool test 2. Follow up with the MRI 3. Consider colonoscopy 4. Continue current medications 5. We discussed my findings or recommendations with the primary physician 6. I will be signing off to Dr. Alvarez tomorrow Plan discussed with: Patient MARGA RUELAS MD Sep 09, 2024 09:30
[2024-09-09] MEDS ORDERED: dilTIAZem 120MG ER CAP PO SCH (10:00)
[2024-09-09] MEDS ORDERED: VENLAFAXINE HCL 37.5mg XR cap PO SCH (10:00)
[2024-09-09] MEDS ORDERED: PANTOPRAZOLE 40 MG/10 ML VIAL INJ IV SCH (10:00)
--- NOTE | 2024-09-09 19:22 | DVHDSRES ---
Discharge Summary Date of Admission Resident Creating Document: NEGAR REYES RESIDENT September 07, 2024 at 21:06 Date of Discharge: Sep 09, 2024 Admitting Diagnosis Abdominal pain Labs/Diagnostic Data: Laboratory Results Test 09/09/24 06:32 09/08/24 12:42 09/08/24 05:51 09/07/24 17:41 White Blood Count 7.8 10^3/uL (4.4-10.8) Red Blood Count 4.54 10^6/uL (4.0-5.20) Hemoglobin 13.1 g/dL (12.2-16.2) Hematocrit 38.4 % (36.0-46.0) Mean Corpuscular Volume 84.7 fL (80.0-100.0) Mean Corpuscular Hemoglobin 28.9 pg (28.0-32.0) Mean Corpuscular Hemoglobin Concent 34.1 g/dL (32.0-36.0) Red Cell Distribution Width 12.9 % (11.8-14.3) Platelet Count 230 10^3/uL (140-450) Mean Platelet Volume 8.5 fL (6.9-10.8) Neutrophils (%) (Auto) 72.7 % (37.0-80.0) Lymphocytes (%) (Auto) 18.0 % (10.0-50.0) Monocytes (%) (Auto) 7.8 % (0.0-12.0) Eosinophils (%) (Auto) 0.9 % (0.0-7.0) Basophils (%) (Auto) 0.6 % (0.0-2.0) Neutrophils # (Auto) 5.7 10 ^3/uL (1.6-8.6) Lymphocytes # (Auto) 1.4 10 ^3/uL (0.4-5.4) Monocytes # (Auto) 0.6 10 ^3/uL (0-1.3) Eosinophils # (Auto) 0.1 10 ^3/uL (0-0.8) Basophils # (Auto) 0 10 ^3/uL (0-0.2) Nucleated Red Blood Cells 0.1 % Sodium Level 143 mmol/L (136-145) Potassium Level 3.5 mmol/L (3.5-5.1) Chloride Level 113 mmol/L (98-107) Carbon Dioxide Level 19 mmol/L (20-31) Anion Gap 11 (5-15) Blood Urea Nitrogen 10 mg/dL (9-23) Creatinine 0.82 mg/dL (0.550-1.02) Glomerular Filtration Rate Calc 89 mL/min (>90) BUN/Creatinine Ratio 12.2 (10.0-20.0) Serum Glucose 96 mg/dL (74-106) Calcium Level 9.8 mg/dL (8.7-10.4) Hemoglobin A1c 5.4 % A1C (<5.7) Total Bilirubin 0.8 mg/dL (0.2-1.0) Aspartate Amino Transferase (AST) 17 U/L (13-40) Alanine Aminotransferase (ALT) 18 U/L (7-40) Alkaline Phosphatase 79 U/L (46-116) Total Protein 6.4 g/dL (5.7-8.2) Albumin 4.2 g/dL (3.2-4.8) Thyroid Stimulating Hormone (TSH) 3.45 uIU/mL (0.55-4.78) Erythrocyte Sedimentation Rate 13 mm/hr (0-20) C-Reactive Protein High Sensitivity 0.33 mg/dL (<1.0) Test 09/07/24 17:15 Urine Color Yellow (Yellow) Urine Clarity Turbid (Clear) Urine pH 5.5 (5.0-9.0) Urine Specific Rodman 1.027 (1.001-1.035) Urine Protein 1+ (Negative) Urine Ketones 1+ (Negative) Urine Blood 1+ /uL (Negative) Urine Nitrite Negative (Negative) Urine Bilirubin Negative (Negative) Urine Urobilinogen Normal mg/dL (Negative) Urine Leukocyte Esterase Trace /uL (Negative) Urine RBC 7 /hpf (0 - 4) Urine Microscopic WBC 7 /HPF (0-5) Urine Squamous Epithelial Cells Mod /hpf (<5) Urine Bacteria Few /hpf (None Seen) Urine Hyaline Casts Few /lpf (0 - 2) Urine Mucus Few (None Seen) Urine Glucose Normal mg/dL (Normal) Urine Opiates Screen Neg (NEGATIVE) Urine Fentanyl Screen Neg (NEGATIVE) Urine Barbiturates Screen Neg (NEGATIVE) Urine Phencyclidine Screen Neg (NEGATIVE) Urine Amphetamines Screen Neg (NEGATIVE) Urine Benzodiazepines Screen Neg (NEGATIVE) Urine Cocaine Screen Neg (NEGATIVE) Urine Cannabinoids Screen Neg (NEGATIVE) Other Laboratory Tests 09/09/24 06:32 Brief Hx & Hospital Course: HPI 49 y/o female with PMHx of hypertension, hyperlipidemia, hepatic steatosis and diverticulosis who presents with acute right lower quadrant abdominal pain which she experienced while going back from work. Patient reports that she has been having episodes of diarrhea associated with the abdominal pain since the last 2 weeks week, loose stools, no associated blood, explosive and foul-smelling with recent episodes turning black patient reported taking Pepto-Bismol and herbal supplement. On asking further history she reports that she has been having on and off diarrhea for the last 6-7 months. Pain is described as moderate and persistent for several days. She also reports of having episode of sweating and feeling hot. Patient is on implanted contraceptive. Yesterday with the patient was going back from work seizure suddenly felt severe pain in the right lower quadrant and reported she felt "has if my appendix exploded". Patient reports associated weight loss apparently she weighed 250 lb a month ago and now she weighs 231 lb now. Denies fever, shortness of breath, or chest pain. No known sick contacts or recent travel. Past medical history: As per HPI No surgical history Social history: Patient denies smoking, alcohol use or any other drug use Home medications: Diltiazem 120 mg daily, pravastatin 40 mg daily, venlafaxine 150 mg, quetiapine 400 mg Hospital course: Patient came to the hospital with a chief complaint of right lower quadrant abdominal pain, underwent evaluation with CT abdomen and MRI. MRI showed1. No evidence of acute abdominal abnormalities.2. Liver parenchyma is normal. The previously questioned abnormality is consistent with mild focal fat deposition. GI consultation was done. Recommended stool test, consider colonoscopy and continue with current medical management with Protonix and Carafate. However patient left hospital against medical advice. Patient advised to follow up with primary care physician and ER precautions provided, advised to come to emergency department if symptom recurs or worsens. The patient has paranoia with delusions and need psychiatric follow up but she declined any help. The patient does not have any suicide/homicide ideation/plans. Physical examination on the day of discharge: Gen - no pallor, no icterus, no cyanosis, no clubbing, no LAD, no edema . Morbidly obese Skin - Patients skin is warm and dry. HEENT - normocephalic, atraumatic, moist mucous membranes. Neck - full ROM, no LAD, no JVD Pulmonary - B/L equal breath sounds, no crackles, no wheezing, no stridor. cardiovascular - regular S1,S2 heard, no added sounds, no murmurs heard. peripheral pulses normal radial 2+, pedal 2+. capillary refill normal <2 secs. GI - soft abdomen mild tenderness in the right and the left lower quadrant, no tenderness of the McBurney's point. no hepatosplenomegaly. Bowel sounds normoactive Neurological - Patient is A/O X 3 . Bilateral upper extremity strength 5/5, bilateral lower extremity strength 5/5, no facial droop, normal speech, no tremor, no focal deficits Provided all medical information to Patient and her , reviewed results of CBC, CMP, urinalysis, results of CT scan abdomen, abdominal pelvis. Patient adamant about against medical advice and left against medical advice. Discussed with Dr. Quigley Consults/Reason for consult GI for abdominal pain and developing liver cirrhosis Condition at Discharge: Undetermined (Left AMA) Final Diagnosis/Problems List Acute intractable abdominal pain likely acute gastritis enteritis Acute diarrhea likely related to acute gastroenteritis Hepatic steatosis Ruled out neuroendocrine tumor Hypertensive heart disease Dyslipidemia Major depression disorder History of intrusive thoughts, delusion and peroneal No suicidal ideation Discharge Disposition: AMA Discharge Instruct/Medications Diet: See Comment (Left AMA) Activity: See Comment (Left AMA) Follow Up/Referral: Left AMA Medications: Left AMA Discharge Statement: "Patient was advised to return to the ER or call 911 if any headaches, dizziness, shortness of breath, chest pain, abdominal pain, bleeding, fevers, or worsening of medical condition. Patient was counseled about treatment plan, medications, possible side effects, patientverbalized understanding. All questions were answered to the best of my ability. This discharge took greater then 30 minutes in planning, reviewing documentation, counseling the patient, and discussing with other team members." ASSESSMENT ASSESSMENT Assessment Addendum Addendum Addendum I was physically present for the ordoñez portions of the service provided to patient by THE RESIDENT. I have reviewed the documentation, discussed the case with resident and agree with the resident's documentation except as noted. Also the patient's clinical case was discussed with the patient's nurse. This medical document was created using an electronic medical record system with computerized dictation system. Although this document has been carefully reviewed, there might still be some phonetic and typographical errors. These areas are purely typographical due to imperfections of the software programs, and do not reflect any compromise in the patient's medical care. Late signature. Date of Service: Sep 09, 2024 Billing Provider: EDGAR QUIGLEY MD Common Visit Codes: 10637-KMO/OBS DISCH DAY >30min THEA VERONICA RESIDENT Sep 09, 2024 19:22 EDGAR QUIGLEY MD Sep 10, 2024 05:50
== END 2024-09-09 09:56 | disposition left against medical advice (07) | DRG 392 ==
LOC: ER 17:04 → OVERFLOW 21:06 → EAST 23:39
PROVIDERS: ATTEND Emergency Medicine
DX: K29.00 Acute gastritis without bleeding (principal); I16.9 Hypertensive crisis, unspecified; K52.9 Noninfective gastroenteritis and colitis, unspecified; K74.60 Unspecified cirrhosis of liver; K76.0 Fatty (change of) liver, not elsewhere classified; I11.9 Hypertensive heart disease without heart failure; F32.9 Major depressive disorder, single episode, unspecified; K57.90 Diverticulosis of intestine, part unspecified, without perforation or abscess without bleeding; I10 Essential (primary) hypertension; E78.5 Hyperlipidemia, unspecified; R61 Generalized hyperhidrosis; Z53.29 Procedure and treatment not carried out because of patient's decision for other reasons; Z88.8 Allergy status to other drugs, medicaments and biological substances; Z82.49 Family history of ischemic heart disease and other diseases of the circulatory system
CPT/HCPCS: 36415; 70450; 74176; 74183; 80048; 80053; 80307; 81001; 83036; 84443; 85025; 85652; 86141; 87086; G0378; J2405; J2470; J3490